=== PATIENT | male | born 1955 | race Caucasian/White ===

== ENCOUNTER 2017-07-26 10:22 | Observation (INO) | payer BC ==
[~2017-07-26] VITALS: Ht 172.7 cm; Wt 72.2 kg
[~2017-07-26 10:22] MED LIST: ALTOPREV40 MG PO; PRINZIDE 20-121 EACH PO; TESSALON200 MG PO
[2017-07-26 11:06] LABS: HEMOGLOBIN 13.4 G/DL (12.5-16.6); MCHC 35.3 G/DL (30.0-36.0); PLATELET COUNT 216 K/uL (156-360); RBC DIS.WIDTH-CV 13.1 % (11.8-14.6); RBC DIS.WIDTH-SD 40.5 % (39-53); RED BLOOD COUNT 4.47 M/uL (4.00-5.50); WHITE BLOOD COUNT 5.4 K/uL (4.1-10.2)
[2017-07-26 11:18] LABS: CHLORIDE 110 mEq/L (99-109); POTASSIUM 3.3 mEq/L (3.7-5.4); SODIUM 143 mEq/L (136-147)
[2017-07-26 11:20] LABS: GLUCOSE 106 mg/dL (70-99)
[2017-07-26 11:23] LABS: CREATININE 1.4 mg/dL (0.6-1.3); GFR ESTIMATE (CALCULATED) 55 mL/min/ (58.99-99999)
[2017-07-26 11:24] LABS: UREA NITROGEN (BUN) 14 mg/dL (9-23)
[2017-07-26 11:27] LABS: TROP-I INTERPRETATION NEGATIVE; TROPONIN-I < 0.01 ng/mL (0.0-0.30)
[2017-07-26] MEDS ORDERED: HYZAAR 100-11 TABLET PO (12:37)
[2017-07-26 14:34] LABS: HDL CHOLESTEROL 35 MG/DL (Desirable>=40); LDL CHOLESTEROL 77 mg/dL (Desirable<100); NON-HDL CHOLESTEROL 95 mg/dL (Desirable<160); TOTAL CHOLESTEROL 130 mg/dL (Desirable<200); TRIGLYCERIDES 88 MG/DL (Normal: <150)
[2017-07-26 16:23] VITALS: BP 158/85
[2017-07-26 19:00] VITALS: BP 130/77
[2017-07-26 23:54] VITALS: BP 128/71
[2017-07-27 05:29] LABS: HEMATOCRIT 36.4 % (38.0-50.0); HEMOGLOBIN 12.3 G/DL (12.5-16.6); MCH 28.7 PG (29.0-34.0); MCHC 33.8 G/DL (30.0-36.0); MCV 84.8 FL (86-99); PLATELET COUNT 231 K/uL (156-360); RBC DIS.WIDTH-CV 13.2 % (11.8-14.6); RED BLOOD COUNT 4.29 M/uL (4.00-5.50); WHITE BLOOD COUNT 4.7 K/uL (4.1-10.2)
[2017-07-27 05:45] LABS: TROP-I INTERPRETATION NEGATIVE; TROPONIN-I < 0.01 ng/mL (0.0-0.30)
[2017-07-27 05:57] LABS: ALBUMIN 4.2 G/DL (3.2-4.8); ALKALINE PHOSPHATASE 82 IU/L (3-129); ALT (GPT) 13 IU/L (3-49); AST (GOT) 18 IU/L (2-34); CHLORIDE 103 MEQ/L (99-109); CREATININE 1.3 MG/DL (0.6-1.3); GFR ESTIMATE (CALCULATED) > 59 mL/min/ (58.99-99999); GLUCOSE 101 mg/dL (70-99); POTASSIUM 3.7 MEQ/L (3.7-5.4); SODIUM 140 MEQ/L (136-147); TOTAL BILIRUBIN 1.3 MG/DL (0.0-1.0); UREA NITROGEN (BUN) 14 mg/dL (9-23)
[2017-07-27 07:42] VITALS: BP 131/70
[2017-07-27 09:55] LABS: TROP-I INTERPRETATION NEGATIVE; TROPONIN-I < 0.01 ng/mL (0.0-0.30)
[2017-07-27 10:35] LABS: HEMOGLOBIN A1c (GLYCOHEMOGLOB) 5.9 % (Below 5.7)
[2017-07-27] MEDS ORDERED: ADULT ASPIRIN R81 MG PO (11:04)
[2017-07-27] MEDS ORDERED: LOPRESSOR25 MG PO (11:04)
[2017-07-27] MEDS ORDERED: AZITHROMYCIN500 M1 PO (11:04)
== END 2017-07-27 11:52 | disposition home or self-care (01) ==
LOC: EME 10:22 → EDOF 12:41 → 4SOUTH 12:41 → EDOF 12:41 → ENRESERV 13:07 → EDOF 13:13 → ENRESERV 14:15 → 4SOUTH 15:46 → ENPENDDIS 07-27 → 4SOUTH 07-27 11:52
PROVIDERS: Internal Medicine; Internal Medicine Cardiovascular Disease
DX: J06.9 Acute upper respiratory infection, unspecified (principal); R07.89 Other chest pain; R94.31 Abnormal electrocardiogram [ECG] [EKG]; I10 Essential (primary) hypertension; E78.5 Hyperlipidemia, unspecified; Z82.49 Family history of ischemic heart disease and other diseases of the circulatory system; Z88.0 Allergy status to penicillin
CPT/HCPCS: 71046; 80048; 80053; 80061; 82948; 83036; 83880; 84484; 85027; 85379; 93005; 99281; 99285; G0378; J1650; J7120